=== PATIENT | female | born 1970 | race Caucasian/White ===

== ENCOUNTER 2016-04-24 09:57 | Inpatient (IN) ==
--- NOTE | 2016-04-23 20:43 | Discharge Summary ---
<Marielos Romeo - Last Filed: 04/24/16 09:43> Date of Encounter: 04/24/16 - Discharge Diagnosis (1) Arthritis of knee, right Priority: Primary Status: Acute (2) ARNAV on CPAP Priority: Secondary Status: Chronic (3) Edema Priority: Secondary Status: Chronic Qualifiers: Edema type: unspecified Qualified Code(s): R60.9 - Edema, unspecified (4) Thyroid disorder Priority: Secondary Status: Chronic - Discharge Medications Home Medications: Aspirin Enteric Coated [Aspirin EC] 325 mg PO DAILY #21 tablet.dr 04/23/16 [Rx] OxyCODONE Immed Rel [Roxicodone 5 MG] 5 - 10 mg PO Q6HR PRN #40 tablet 04/23/16 [Rx] Albuterol Neb [Proventil Neb] 2.5 mg IH Q4HR 04/24/16 [History] BuPROPion XL (24 HR) [Wellbutrin Xl] 150 mg PO DAILY 04/24/16 [History] Bupropion HCl [Wellbutrin Xl] 300 mg PO DAILY 04/24/16 [History] Buspirone HCl [Buspar] 30 mg PO BID 04/24/16 [History] Docusate [Colace] 100 mg PO DAILY 04/24/16 [History] Fluticasone Propionate Nasal [Flonase] 1 spr NS DAILY PRN 04/24/16 [History] Furosemide [Lasix] 40 mg PO DAILY 04/24/16 [History] Gabapentin 300 mg PO HS 04/24/16 [History] Hydroxyzine HCl 25 mg PO BID 04/24/16 [History] Hydroxyzine HCl 50 mg PO HS 04/24/16 [History] Ipratropium [ATROVENT Inhaler] 2 gm IH Q6HR 04/24/16 [History] Ipratropium/Albuterol Sulfate [Combivent Respimat Inhal [place]] 1 puff IH QID [History] Levothyroxine [Synthroid] 75 mcg PO DAILY 04/24/16 [History] Pantoprazole Sodium [Protonix] 20 mg PO DAILY 04/24/16 [History] Paroxetine HCl [Paxil] 20 mg PO DAILY 04/24/16 [History] Quetiapine Fumarate [Seroquel Xr] 800 mg PO HS 04/24/16 [History] Ranitidine HCl [Zantac] 150 mg PO DAILY 04/24/16 [History] Tiotropium [Spiriva] 18 mcg IH 0700 04/24/16 [History] Trazodone HCl 150 mg PO HS 04/24/16 [History] Allergies/Adverse Reactions: Allergies No Known Allergies Allergy (Verified 04/24/16 11:15) Primary care physician: Mylene Norman CNP - Patient Status Disposition: Home, Self-Care Condition: Good - Discharge Instructions Follow Up With: Jefferson Green MD [Partnered Physician] - 05/23/16 7:50 am Marielos Romeo PAC [Physician Visual Lead] - 05/03/16 8:45 am Mylene Norman CNP [Primary Care Provider] - - Hospital Course Hospital course: Ms. Kahn is a 45 year old female - Time Spent with Patient Total time spent providing and/or coordinating discharge services: <Jefferson Green - Last Filed: 04/27/16 08:38> Time of Encounter: 08:37 - Discharge Diagnosis (1) Morbid obesity with BMI of 45.0-49.9, adult Priority: Secondary Status: Chronic (2) Arthritis of knee, right Priority: Primary Status: Acute (3) Edema Priority: Secondary Status: Chronic Qualifiers: Edema type: unspecified Qualified Code(s): R60.9 - Edema, unspecified (4) ARNAV on CPAP Priority: Secondary Status: Chronic (5) Thyroid disorder Priority: Secondary Status: Chronic (6) Acute blood loss anemia Priority: Primary Status: Acute Primary care physician: Mylene Norman CNP - Patient Status Functional capacity at discharge: uses cane/walker Overall status at discharge: patient is progressing back to baseline - Hospital Course Hospital course: Ms. Kahn is a 45 year old female The patient had an uneventful postoperative course. They received antibiotics and physical therapy and were discharged in stable condition. There will follow -up in the office in 2 weeks. Patient with acute blood loss anemia and received 2 units prior to discharge discharge aspirin DVT prophylaxis - Time Spent with Patient Total time spent providing and/or coordinating discharge services:
[2016-04-24] MEDS ORDERED: CeFAZolin Pre 2,000 MG/100 ML 2,000 MG/100 ML BAG IVPB ONE (10:28)
[2016-04-24] MEDS ORDERED: Albuterol 2.5 MG/3 ML NEBULIZER IH ONE (10:28)
[2016-04-24] MEDS: Ringers Solution, Lactated 1,000 ML IVC SCH ×3 (10:39→20:46)
--- NOTE | 2016-04-24 10:46 | History & Physical Report ---
Date of Encounter: 04/24/16 Time of Encounter: 10:46 24 Hour HP Update - Instructions Instructions: If the History and Physical is less than 30 days old and was completed prior to A.M. admission and or procedure and has NOT been updated on calendar day of procedure please complete this update prior to performing procedure. - Update Patient reports changes in Medical Condition: No Changes in assessment/condition: No Changes in Medication: No Preop tests/diagnostics Reviewed: Yes Surgery Remains Indicated: Yes Consent for Planned Operative Procedure(s) Verified: Yes - Pre-Operative Checklist Preoperative Checklist Indicated: No Prophylactic Antibiotic Ordered: Yes Is VTE Prophylaxis Indicated?: Yes
[2016-04-24] MEDS ORDERED: Vancomycin 1,750 MG in D5% in Water 500 ML IVPB ONE (10:50)
[2016-04-24] MEDS ORDERED: CeFAZolin Pre 3,000 MG/100 ML 3,000 MG/100 ML BAG IVPB ONE (10:51)
[2016-04-24] MEDS ORDERED: Famotidine 20 MG/2 ML VIAL IVP ONE (10:53)
--- NOTE | 2016-04-24 11:05 | Anesthesia Evaluation PreOp ---
Date of Encounter: 04/24/16 Time of Encounter: 11:00 - Past History Planned Operation: RT TKA Cardiac History: Denies any Significant Hx, Other (Anemia) Pulmonary History: Asthma, ARNAV Dx (CPAP) CUSTOMER OPERATIONS SPECIALIST History: Denies Any Significant HX Other Medical History: GERD, Other (MO) Anesthesia History: No Prior Anesthetic Complications : No (Hysterectomy) Alcohol Use: none Drug use: none Medications and Allergies Amoxicillin 875 mg PO BID #20 tablet 03/19/15 [Rx] Bupropion HCl [Wellbutrin Xl] 300 mg PO 03/19/15 [History] Seroquel 03/19/15 [History] Aspirin Enteric Coated [Aspirin EC] 325 mg PO DAILY #21 tablet. 04/23/16 [Rx] OxyCODONE Immed Rel [Roxicodone 5 MG] 5 - 10 mg PO Q6HR PRN #40 tablet 04/23/16 [Rx] Allergies No Known Allergies Allergy (Verified 03/19/15 13:33) - Meds/Allergy Pre-op Review Medications Reviewed: Yes Allergies Reviewed: Yes Beta Blockers on Current Med List: No Anesthesia Results - Labs Laboratory Tests 04/12/16 04/12/16 14:30 14:30 Hgb 13.2 Hct 40.4 Plt Count 267 Sodium 139 Potassium 3.6 BUN 11 Creatinine 1.00 - Imaging Additional studies: Normal heart cath 2014 Anesthesia Exam O2 Sat Height 1.57 m Height 1.57 m Height 1.57 m Weight 115.666 kg Weight 115.666 kg Weight 115.666 kg O2 Sat by Pulse Oximetry 94 O2 Sat by Pulse Oximetry 94 Vital Signs Temp Pulse Resp BP Pulse Ox 97.9 F 68 18 119/69 94 L 04/24/16 10:13 04/24/16 10:13 04/24/16 10:13 04/24/16 10:13 04/24/16 10:13 Height: 5'2 Weight: 258 lbs NPO (# of Hours): MN - HEENT Pupil (Motor): Pupils equal, EOMI Mallampati: III Teeth: Normal Oral Opening: Less than or equal to 3 - CUSTOMER OPERATIONS SPECIALIST LOC: Oriented CUSTOMER OPERATIONS SPECIALIST Motor: Normal RUE, Normal LUE, Normal RLE, Normal LLE, Normal Face CUSTOMER OPERATIONS SPECIALIST Sensory: Normal: RUE, LUE, RLE, LLE, Face - Cardiac Rhythm: Regular Murmur: None JVD: No Carotid Bruit: No - Pulmonary Breath Sounds: bilateral Clear Respiratory Effort: Symmetrical Anesthesia Assess/Plan ASA Score: 3 (MO ARNAV) Modified Pedro Scale for Level of Consciousness: Cooperative, oriented, and tranquil Anesthetic Plan: General, Regional Monitoring Plan: Standard Monitors Recovery Plan: PACU (Discussed GA and RA, agrees to proceed)
[2016-04-24] MEDS ORDERED: *HR* Midazolam HCl 2 MG/2 ML VIAL ONE (11:14)
[2016-04-24] MEDS ORDERED: *HR* FentaNYL (PF) 100 MCG/2 ML VIAL ONE (11:14)
[2016-04-24] MEDS ORDERED: *HR* Propofol 200 MG/20 ML VIAL IVP ONE (11:14)
[2016-04-24] MEDS ORDERED: Lidocaine -MPF 2% 2 ML VIAL ONE (11:16)
[2016-04-24] MEDS ORDERED: *HR* Labetalol 100 MG/20 ML MDV IVP PRN (11:23)
[2016-04-24] MEDS ORDERED: Tetracaine/PF 20 MG/2 ML AMPUL SPINA ONE (11:57)
--- NOTE | 2016-04-24 12:13 | Anesthesia Procedures ---
Date of Encounter: 04/24/16 Time of Encounter: 11:05 Procedures: Anesthesia - Nerve Block Procedure Date: 04/24/16 Time: 12:00 Pre-op Diagnosis: Rt Knee OA Surgical Procedure: Rt TKA Checklist: Correct Patient Identifier Correct side: Right Blood Thinner: No Monitor Applied: EKG, BP, Pulse Oximetry Supplemental Oxygen via Nasal Cannula (L/min): 2 Sedation: Versed (mg): 2 Sedation: Fentanyl (mcg): 50 Indication: Post Op Analgesia Pre-op Neuro Deficits: No Block Type: Femoral Catheter placed: No Depth at skin (cm): 3 Sterile Technique: Yes Ultrasound used: Yes Anatomy identified: Yes Visual spread of Local: Yes Neuro Stimulation: Yes Nerve Stimulator Range: 0.2 - 0.4 mA Blood on Needle Aspiration: No Smooth Injection of Local: Yes Pain with Injection of Local: No Prep: Chlorhexadine Needle: 22 x 50 mm Stimuplex Local: Tetracaine, Other (Bupivacaine) Volume (cc): 30 Number of Attempts: 1 Complications: None/effective block Vitals: Vital Signs/O2 Sat/Glucose, Most Current Temp Pulse Resp BP Pulse Ox 04/24/16 12:08 74 16 120/89 96 04/24/16 11:53 73 16 121/83 99 04/24/16 10:40 18 94 L 04/24/16 10:13 97.9 F 68 18 119/69 94 L
[2016-04-24] MEDS ORDERED: *HR* Magnesium Sulfate 1 GM/2 ML VIAL ONE (12:32)
[2016-04-24] MEDS ORDERED: *HR* HYDROmorphone 2 MG/ML SYRINGE ONE (12:40)
--- NOTE | 2016-04-24 13:02 | Orthopedic Operative Note ---
Date of procedure: 04/24/16 Pre-op diagnosis: Right knee arthritis ACL tear Post-op diagnosis: same Procedure: Procedure: Right Total knee replacement Estimated blood loss: 200 cc Hardware: Arthrex Femur: 5 Tibia: 5 PS insert: 13 Patella: 34 Exam Under anesthesia: Positive anterior instability. Full Flexion. Full Extension Procedural Notes: Grade 4 arthritic changes medial compartment patellofemoral joint ACL tear. Operative procedure: The patient was brought to the operating room and placed on the operating room table. After general anesthesia was administered the operative knee was examined. Findings were noted in the exam under anesthesia. The operative extremity was prepped and draped in sterile surgical fashion. The patient received IV antibiotics prior to skin incision. A standard midline incision was made centered over the patella. The incision was made through the skin and subcutaneous tissue. A medial parapatellar tendon approach was performed. Care was taken to preserve tissue along the medial aspect of the patella. And to protect the patella tendon. The deep MCL was released off the medial tibia. The infra patella fat pad was excised. Knee was brought into flexion. Patient noted to have Grade 4 arthritic changes medial compartment patellofemoral joint. The entry hole was made for the intramedullary femoral guide. The guide was seated in 6 degrees of valgus. Anterior cut was made followed by the distal cut. The ACL was torn the PCL the medial and the lateral menisci were excised. The tibia was subluxed forward. The entry hole was made for the intramedullary tibial guide. Guide was seated to resect 2 mm off the more abnormal side. The knee was brought into flexion the distal femur was sized to a 5. The femoral guide was seated, the anterior cut was made followed by the posterior condylar cut, followed by the chamfer cuts. The finishing guide was seated the box cut was made and the lug holes were drilled. The tibia was sized to a 5, the tibial tray was seated and prepared with the large drill followed by the fin cutter. Trial reduction revealed full extension no varus valgus instability with the appropriate 13 PS Aminah. The patella was everted and cut was made at the level of the insertion of the quadriceps and patella tendon. The patella was sized to a 34 the guide was seated and the lug holes are drilled. Trial reduction revealed excellent patella tracking. All trial components were removed all bony surfaces were irrigated. The tibia was cemented first followed by the femur. The 13 PS Aminah was seated and the knee was brought into full extension. The patella was cemented and held in place with the patellar holding clamp. After the cement had hardened, the knee sat for 2 minutes with a Betadine saline solution. The knee was then irrigated out with 2 L of pulse irrigation. The extensor mechanism was closed with #2 FiberWire suture and #2 PDS suture. The subcutaneous tissue was then irrigated and closed deep with #1 PDS suture superficially with 0 PDS suture and skin was closed with skin frank and Dermabond. The patient was then placed in a sterile dressing and a postoperative brace extubated and transferred to recovery room in stable condition. Anesthesia: GM Surgeon: Jefferson Green Condition: stable Disposition: PACU
[2016-04-24] MEDS: *HR* Promethazine 25 MG/ML VIAL IVP PRN ×2 (13:42→13:50)
[2016-04-24] MEDS: *HR* HYDROmorphone (PF) 1 MG/ML SYRINGE IVP PRN ×2 (13:55→14:00)
[2016-04-24] MEDS ORDERED: *HR* Meperidine 25 MG/ML SYRINGE ONE ×2 (14:04→14:14)
[2016-04-24] MEDS ORDERED: *HR* Morphine 10 MG/ML VIAL ONE (14:05)
[2016-04-24 14:43] LABS: Hematocrit 34.6 % (35.3-44.9); Hemoglobin 11.3 g/dL (11.5-15.4)
--- NOTE | 2016-04-24 15:46 | Anesthesia Evaluation Post Op ---
Date of Encounter: 04/24/16 Time of Encounter: 15:35 - Vital Signs Vital Signs: Vital Signs/O2 Sat/Glucose, Most Current Temp Pulse Resp BP Pulse Ox 04/24/16 15:35 97.3 F L 89 14 121/75 93 L 04/24/16 15:33 13 92 L 04/24/16 15:25 88 14 134/84 93 L 04/24/16 15:15 90 12 134/79 91 L 04/24/16 15:05 97.4 F L 87 12 142/92 91 L 04/24/16 14:55 82 16 135/92 92 L 04/24/16 14:45 90 16 123/88 90 L 04/24/16 14:35 97.4 F L 90 16 131/78 93 L 04/24/16 14:25 90 16 131/74 85 L 04/24/16 14:15 84 16 126/86 89 L 04/24/16 14:05 97.3 F L 86 16 124/76 97 04/24/16 13:55 85 16 121/79 98 04/24/16 13:45 87 16 133/74 100 04/24/16 13:35 97.0 F L 88 16 137/93 100 04/24/16 12:08 74 16 120/89 96 04/24/16 11:53 73 16 121/83 99 - Lungs Lungs: Clear Ascult./Percussion - Airway Airway: Non-obstructed - Cardiovascular Regular Rate - Mental Status Mental Status: Alert & Oriented, Answers Appropriately - Pain Pain Scale: 2 - Nausea Vomiting Nausea Vomiting: Not Present - Hydration Hydration: Ice chips - Discharge PostOp Status: Transfer Patient to floor
[2016-04-24] MEDS ORDERED: Sennosides 8.6 MG TABLET PO PRN (16:13)
[2016-04-24] MEDS ORDERED: Naloxone 0.4 MG/ML INJ IVP PRN (16:13)
[2016-04-24] MEDS ORDERED: Ondansetron 4 MG/2 ML VIAL IVP PRN (16:13)
[2016-04-24] MEDS ORDERED: Fluticasone Propionate Nasal 50 MCG/SPRAY BOTTLE NS PRN (16:13)
[2016-04-24] MEDS ORDERED: *HR* OxyCODONE Immed Rel 5 MG TABLET PO PRN (16:13)
[2016-04-24] MEDS ORDERED: Albuterol Neb 1.25 MG/3 ML VIAL IH ONE (16:13)
[2016-04-24] MEDS ORDERED: Acetaminophen 325 MG TABLET PO PRN (16:13)
[2016-04-24] MEDS ORDERED: MOM Conc 10 ML UD.LIQ PO PRN (16:13)
[2016-04-24] MEDS ORDERED: Temazepam 15 MG CAPSULE PO PRN (16:13)
[2016-04-24] MEDS ORDERED: Ipratropium 1 PUFF INHALER IH SCH (16:13)
[2016-04-24] MEDS: Ketorolac 30 MG/ML VIAL IVP PRN (16:33)
[2016-04-24] MEDS: Ipratropium 1 PUFF INHALER IH SCH ×2 (17:13→21:24)
[2016-04-24] MEDS: hydrOXYzine pamoate 25 MG CAPSULE PO SCH (17:39)
[2016-04-24] MEDS: *HR* Enoxaparin 30 MG/0.3 ML SYRINGE SQ SCH (17:48)
[2016-04-24] MEDS ORDERED: *HR* Enoxaparin 30 MG/0.3 ML SYRINGE SQ SCH (18:00)
[2016-04-24] MEDS: Gabapentin 300 MG CAPSULE PO SCH (20:45)
[2016-04-24] MEDS: traZODone 50 MG TABLET PO SCH (20:45)
[2016-04-24] MEDS: ceFAZolin 3,000 MG in D5% in Water 100 ML IVPB SCH (20:46)
[2016-04-24] MEDS ORDERED: QUETIAPINE FUMARATE 800 MG PO SCH (21:00)
[2016-04-24] MEDS ORDERED: hydrOXYzine pamoate 25 MG CAPSULE PO SCH (21:00)
[2016-04-24] MEDS ORDERED: NON-FORMULARY MEDICATION 1 EACH EACH (Hydroxyzine Hcl [Hydroxyzine Hcl] 50 MG) PO SCH (21:00)
[2016-04-24] MEDS: Albuterol 2.5 MG/3 ML NEBULIZER IH SCH (21:23)
[2016-04-25] MEDS: Albuterol 2.5 MG/3 ML NEBULIZER IH SCH ×7 (00:52→23:41)
[2016-04-25] MEDS: *HR* OxyCODONE Immed Rel 5 MG TABLET PO PRN ×3 (01:24→16:52)
[2016-04-25] MEDS: Ketorolac 30 MG/ML VIAL IVP PRN ×4 (02:17→19:05)
[2016-04-25] MEDS: *HR* HYDROmorphone (PF) 1 MG/ML SYRINGE IVP PRN (03:45)
[2016-04-25] MEDS: ceFAZolin 3,000 MG in D5% in Water 100 ML IVPB SCH (04:53)
[2016-04-25] MEDS: Ipratropium 1 PUFF INHALER IH SCH ×4 (05:06→20:16)
[2016-04-25 06:15] LABS: Hematocrit 31.4 % (35.3-44.9); Hemoglobin 10.1 g/dL (11.5-15.4)
[2016-04-25 06:39] LABS: Calcium 8.2 mg/dL (8.6-10.8)
[2016-04-25 06:41] LABS: Potassium 4.5 mEq/L (3.5-4.5)
--- NOTE | 2016-04-25 06:42 | Orthopedics Progress Note ---
Date of Encounter: 04/25/16 Time of Encounter: 06:41 - Assessment and Plan (1) Morbid obesity with BMI of 45.0-49.9, adult Current Visit: Yes Status: Chronic (2) Arthritis of knee, right Current Visit: Yes Status: Acute (3) Edema Current Visit: Yes Status: Chronic Qualifiers: Edema type: unspecified Qualified Code(s): R60.9 - Edema, unspecified (4) ARNAV on CPAP Current Visit: Yes Status: Chronic (5) Thyroid disorder Current Visit: Yes Status: Chronic Subjective Interval history: Patient was seen this morning doing well without complaints. Afebrile vital signs stable. Operative extremity: Neurovascularly intact Dressing clean dry and intact Calves nontender Assessment and plan: Continue with postoperative care Hematocrit 31 Objective Vital signs: Vital Signs Temp Pulse Resp BP Pulse Ox 04/25/16 05:06 16 94 L 04/25/16 03:58 97.8 F 80 19 121/83 95 04/25/16 00:00 97.5 F L 79 18 129/80 97 04/24/16 21:24 18 97 04/24/16 20:00 97.8 F 78 18 126/82 98 04/24/16 18:50 91 14 95 04/24/16 17:51 98.0 F 94 14 108/77 96 04/24/16 17:15 16 91 L 04/24/16 16:50 98.0 F 91 14 100/67 93 L 04/24/16 16:48 14 91 L 04/24/16 16:20 97.7 F 89 12 130/80 93 L 04/24/16 16:13 95 04/24/16 15:50 97.5 F L 95 12 131/74 92 L 04/24/16 15:35 97.3 F L 89 14 121/75 93 L 04/24/16 15:33 13 92 L 04/24/16 15:25 88 14 134/84 93 L 04/24/16 15:15 90 12 134/79 91 L 04/24/16 15:05 97.4 F L 87 12 142/92 91 L 04/24/16 14:55 82 16 135/92 92 L 04/24/16 14:45 90 16 123/88 90 L 04/24/16 14:35 97.4 F L 90 16 131/78 93 L 04/24/16 14:25 90 16 131/74 85 L 04/24/16 14:15 84 16 126/86 89 L 04/24/16 14:05 97.3 F L 86 16 124/76 97 04/24/16 13:55 85 16 121/79 98 04/24/16 13:45 87 16 133/74 100 04/24/16 13:35 97.0 F L 88 16 137/93 100 04/24/16 12:08 74 16 120/89 96 04/24/16 11:53 73 16 121/83 99 04/24/16 10:40 18 94 L 04/24/16 10:13 97.9 F 68 18 119/69 94 L Intake and Output 04/24/16 04/24/16 04/25/16 15:59 23:59 07:59 Intake Total 1650 / 1650 200 / 200 Output Total 200 / 200 Balance 1450 / 1450 200 / 200 Intake: IV Fluids 1650 / 1650 100 / 100 Lactated Ringers 1,000 ML 1650 / 1650 @ 25 mls/hr IVC .Q24H MARIANGEL Rx#:[id number] Ancef 3,000 MG In 100 / 100 Dextrose 5% 100 ML @ 200 mls/hr IVPB Q8H MARIANGEL Rx#: [id number] Oral 100 / 100 Output: Estimated Blood Loss 200 / 200 Other: Weight 115.666 kg - Labs CBC & BMP: 04/25/16 05:43 04/25/16 05:43 Labs: Abnormal lab results Hgb 10.1 g/dL (11.5-15.4) L 04/25/16 05:43 Hct 31.4 % (35.3-44.9) L 04/25/16 05:43 Sodium 131 mEq/L (136-145) L 04/25/16 05:43 Carbon Dioxide 16 mEq/L (19-29) L 04/25/16 05:43 Creatinine 1.19 mg/dL (0.57-1.11) H 04/25/16 05:43 Est GFR ( Amer) 59 (> 60) L 04/25/16 05:43 Est GFR (Non-Af Amer) 49 (> 60) L 04/25/16 05:43 Glucose 125 mg/dL (70-99) H 04/25/16 05:43 Calculated Osmolality 274 (280-300) L 04/25/16 05:43 Calcium 8.2 mg/dL (8.6-10.8) L 04/25/16 05:43 - VTE Documentation of Mechanical Device: Venous foot pump, device Consult Discharge Plan - Plan Referrals: Mylene Norman, CARBURETOR MECHANIC [Primary Care Provider] -
[2016-04-25] MEDS: *HR* Enoxaparin 30 MG/0.3 ML SYRINGE SQ SCH ×2 (07:28→17:32)
[2016-04-25] MEDS: Tiotropium 18 MCG inhalation IH SCH (08:07)
[2016-04-25] MEDS: BuPROPion XL (24 HR) 150 MG TABLET PO SCH ×2 (09:46)
[2016-04-25] MEDS: Furosemide 40 MG TABLET PO SCH (09:47)
[2016-04-25] MEDS: Famotidine 20 MG TABLET PO SCH (09:47)
[2016-04-25] MEDS: Ringers Solution, Lactated 1,000 ML IVC SCH (12:22)
[2016-04-25] MEDS: hydrOXYzine pamoate 25 MG CAPSULE PO SCH (17:32)
[2016-04-25] MEDS: Gabapentin 300 MG CAPSULE PO SCH (22:01)
[2016-04-25] MEDS: traZODone 50 MG TABLET PO SCH (22:01)
[2016-04-26] MEDS: *HR* OxyCODONE Immed Rel 5 MG TABLET PO PRN ×3 (03:34→18:26)
[2016-04-26] MEDS: Albuterol 2.5 MG/3 ML NEBULIZER IH SCH ×6 (04:30→23:39)
[2016-04-26] MEDS: Ipratropium 1 PUFF INHALER IH SCH ×4 (04:31→22:00)
[2016-04-26] MEDS: *HR* HYDROmorphone (PF) 1 MG/ML SYRINGE IVP PRN ×2 (05:17→11:54)
[2016-04-26] MEDS: *HR* Enoxaparin 30 MG/0.3 ML SYRINGE SQ SCH ×2 (05:18→18:26)
[2016-04-26 06:44] LABS: Hematocrit 24.2 % (35.3-44.9)
[2016-04-26 06:55] LABS: BUN/Creatinine Ratio 14 (6-26); Blood Urea Nitrogen 13 mg/dL (7-20); Calcium 8.2 mg/dL (8.6-10.8); Carbon Dioxide 27 mEq/L (19-29); Chloride 104 mEq/L (98-109); Glucose 105 mg/dL (70-99); Osmolality,Calculated 284 (280-300); Potassium 4.4 mEq/L (3.5-4.5); Sodium 137 mEq/L (136-145); eGFR For African Americans > 60 (> 60); eGFR For Non-African Americans > 60 (> 60)
--- NOTE | 2016-04-26 07:48 | Orthopedics Progress Note ---
Date of Encounter: 04/26/16 Time of Encounter: 07:47 - Assessment and Plan (1) Morbid obesity with BMI of 45.0-49.9, adult Current Visit: Yes Status: Chronic (2) Arthritis of knee, right Current Visit: Yes Status: Acute (3) Edema Current Visit: Yes Status: Chronic Qualifiers: Edema type: unspecified Qualified Code(s): R60.9 - Edema, unspecified (4) ARNAV on CPAP Current Visit: Yes Status: Chronic (5) Thyroid disorder Current Visit: Yes Status: Chronic Subjective Interval history: Patient was seen this morning doing well without complaints. Afebrile vital signs stable. Operative extremity: Neurovascularly intact Dressing clean dry and intact Calves nontender Assessment and plan: Continue with postoperative care Hematocrit 24 repeat H&H Objective Vital signs: Vital Signs Temp Pulse Resp BP Pulse Ox 04/26/16 06:55 97.9 F 95 16 112/68 92 L 04/26/16 05:15 98.6 F 78 16 114/72 98 04/26/16 01:48 99.0 F 108 15 101/70 92 L 04/25/16 21:53 98.0 F 77 16 111/68 94 L 04/25/16 20:01 18 94 L 04/25/16 17:16 16 96 04/25/16 15:57 98.2 F 88 16 105/68 97 04/25/16 12:30 97.9 F 91 16 132/87 93 L 04/25/16 12:06 17 94 L 04/25/16 11:54 97.7 F 97 16 122/74 94 L 04/25/16 11:21 97.8 F 91 18 123/74 95 04/25/16 08:07 18 93 L Intake and Output 04/25/16 04/25/16 04/26/16 15:59 23:59 07:59 Intake Total 1240 / 1240 Output Total 350 / 350 600 / 600 400 / 400 Balance 890 / 890 -600 / -600 -400 / -400 Intake: IV Fluids 1000 / 1000 Lactated Ringers 1,000 ML 1000 / 1000 @ 75 mls/hr IVC .[id number] MARIANGEL Rx#:[id number] Oral 240 / 240 Output: Urine 350 / 350 600 / 600 400 / 400 Other: Meal Lunch Percent of Meal Consumed 50% # Voids 1 - Labs CBC & BMP: 01/18/17 06:24 04/26/16 06:24 Labs: Abnormal lab results Hgb 8.0 g/dL (11.5-15.4) L D 04/26/16 06:24 Hct 24.2 % (35.3-44.9) L 04/26/16 06:24 Glucose 105 mg/dL (70-99) H 04/26/16 06:24 Calcium 8.2 mg/dL (8.6-10.8) L 04/26/16 06:24 - VTE Documentation of Mechanical Device: Venous foot pump, device Consult Discharge Plan - Plan Referrals: Jefferson Green MD [Partnered Physician] - 05/23/16 7:50 am Marielos Romeo PAC [Physician Laser Machine Operator] - 05/03/16 8:45 am Mylene Norman CNP [Primary Care Provider] -
[2016-04-26] MEDS: Tiotropium 18 MCG inhalation IH SCH (08:01)
[2016-04-26 08:53] LABS: Hematocrit 26.9 % (35.3-44.9)
[2016-04-26] MEDS: BuPROPion XL (24 HR) 150 MG TABLET PO SCH ×2 (09:04→09:05)
[2016-04-26] MEDS: Famotidine 20 MG TABLET PO SCH (09:05)
[2016-04-26] MEDS: Furosemide 40 MG TABLET PO SCH (09:05)
[2016-04-26] MEDS: hydrOXYzine pamoate 25 MG CAPSULE PO SCH (18:26)
[2016-04-26] MEDS: Ketorolac 30 MG/ML VIAL IVP PRN (22:09)
[2016-04-26] MEDS: traZODone 50 MG TABLET PO SCH (22:09)
[2016-04-26] MEDS: Gabapentin 300 MG CAPSULE PO SCH (22:10)
[2016-04-27] MEDS: *HR* OxyCODONE Immed Rel 5 MG TABLET PO PRN ×3 (00:56→19:01)
[2016-04-27] MEDS: Albuterol 2.5 MG/3 ML NEBULIZER IH SCH ×6 (03:11→22:29)
[2016-04-27] MEDS: Ipratropium 1 PUFF INHALER IH SCH ×4 (03:13→22:26)
[2016-04-27] MEDS: *HR* Enoxaparin 30 MG/0.3 ML SYRINGE SQ SCH ×2 (06:41→17:49)
[2016-04-27] MEDS: Tiotropium 18 MCG inhalation IH SCH (08:01)
[2016-04-27 08:05] LABS: Hematocrit 22.5 % (35.3-44.9); Hemoglobin 7.5 g/dL (11.5-15.4)
[2016-04-27 08:18] LABS: BUN/Creatinine Ratio 10 (6-26); Blood Urea Nitrogen 8 mg/dL (7-20); Calcium 8.2 mg/dL (8.6-10.8); Carbon Dioxide 26 mEq/L (19-29); Chloride 100 mEq/L (98-109); Glucose 97 mg/dL (70-99); Osmolality,Calculated 276 (280-300); Potassium 3.5 mEq/L (3.5-4.5); Sodium 134 mEq/L (136-145); eGFR For African Americans > 60 (> 60); eGFR For Non-African Americans > 60 (> 60)
--- NOTE | 2016-04-27 08:40 | Orthopedics Progress Note ---
Date of Encounter: 04/27/16 Time of Encounter: 08:40 - Assessment and Plan (1) Morbid obesity with BMI of 45.0-49.9, adult Current Visit: Yes Status: Chronic (2) Arthritis of knee, right Current Visit: Yes Status: Acute (3) Edema Current Visit: Yes Status: Chronic Qualifiers: Edema type: unspecified Qualified Code(s): R60.9 - Edema, unspecified (4) ARNAV on CPAP Current Visit: Yes Status: Chronic (5) Thyroid disorder Current Visit: Yes Status: Chronic (6) Acute blood loss anemia Current Visit: Yes Status: Acute Subjective Interval history: Patient was seen this morning doing well without complaints. Afebrile vital signs stable. Operative extremity: Neurovascularly intact Dressing clean dry and intact Calves nontender Assessment and plan: Continue with postoperative care Hematocrit 22 this morning transfuse 2 units Blood cells plan for discharge this afternoon Objective Vital signs: Vital Signs Temp Pulse Resp BP Pulse Ox 04/27/16 08:03 20 95 04/27/16 07:39 98.0 F 97 20 94/68 97 04/27/16 03:14 18 91 L 04/27/16 00:06 87 20 98 04/26/16 23:39 18 89 L 04/26/16 20:24 18 93 L 04/26/16 19:36 98.8 F 94 20 121/80 97 04/26/16 15:56 18 136/86 88 L 04/26/16 15:53 98.3 F 95 18 136/86 100 04/26/16 11:36 18 95 04/26/16 10:43 98.6 F 87 17 140/87 94 L Intake and Output 04/26/16 04/27/16 04/27/16 23:59 07:59 15:59 Intake Total 500 / 500 350 / 350 Output Total 250 / 250 600 / 600 Balance 250 / 250 -250 / -250 Intake: Oral 500 / 500 350 / 350 Output: Urine 250 / 250 600 / 600 - Labs CBC & BMP: 04/27/16 07:52 04/27/16 07:52 Labs: Abnormal lab results Hgb 7.5 g/dL (11.5-15.4) L D 04/27/16 07:52 Hct 22.5 % (35.3-44.9) L 04/27/16 07:52 Sodium 134 mEq/L (136-145) L 04/27/16 07:52 Calculated Osmolality 276 (280-300) L 04/27/16 07:52 Calcium 8.2 mg/dL (8.6-10.8) L 04/27/16 07:52 MRSA Surveillance Scrn Positive (Negative) A 04/26/16 12:00 - VTE Documentation of Mechanical Device: Venous foot pump, device Consult Discharge Plan - Plan Referrals: Jefferson Green MD [Partnered Physician] - 05/23/16 7:50 am Marielos Romeo, PAC [Physician Quality Control Industrial Engineer] - 05/03/16 8:45 am Mylene Norman, SWING GRINDER [Primary Care Provider] -
[2016-04-27] MEDS: Famotidine 20 MG TABLET PO SCH (10:07)
[2016-04-27] MEDS: BuPROPion XL (24 HR) 150 MG TABLET PO SCH ×2 (10:08)
[2016-04-27] MEDS: Furosemide 40 MG TABLET PO SCH (10:08)
[2016-04-27] MEDS ORDERED: 0.9 % Sodium Chloride 250 ML ONE ×2 (17:33→21:37)
[2016-04-27] MEDS: hydrOXYzine pamoate 25 MG CAPSULE PO SCH (17:49)
[2016-04-27] MEDS: Gabapentin 300 MG CAPSULE PO SCH (22:06)
[2016-04-27] MEDS: traZODone 50 MG TABLET PO SCH (22:06)
[2016-04-28] MEDS: *HR* OxyCODONE Immed Rel 5 MG TABLET PO PRN ×2 (04:37→08:32)
[2016-04-28] MEDS: Albuterol 2.5 MG/3 ML NEBULIZER IH SCH ×2 (04:39→08:11)
[2016-04-28] MEDS: Ipratropium 1 PUFF INHALER IH SCH (04:39)
[2016-04-28 05:20] LABS: Hematocrit 27.2 % (35.3-44.9)
[2016-04-28 05:22] LABS: Hemoglobin 9.3 g/dL (11.5-15.4)
[2016-04-28] MEDS: *HR* Enoxaparin 30 MG/0.3 ML SYRINGE SQ SCH (06:14)
--- NOTE | 2016-04-28 06:34 | Orthopedics Progress Note ---
Date of Encounter: 04/28/16 Time of Encounter: 06:34 - Assessment and Plan (1) Morbid obesity with BMI of 45.0-49.9, adult Current Visit: Yes Status: Chronic (2) Arthritis of knee, right Current Visit: Yes Status: Acute (3) Edema Current Visit: Yes Status: Chronic Qualifiers: Edema type: unspecified Qualified Code(s): R60.9 - Edema, unspecified (4) ARNAV on CPAP Current Visit: Yes Status: Chronic (5) Thyroid disorder Current Visit: Yes Status: Chronic (6) Acute blood loss anemia Current Visit: Yes Status: Acute Subjective Interval history: Patient was seen this morning doing well without complaints. Afebrile vital signs stable. Operative extremity: Neurovascularly intact Dressing clean dry and intact Calves nontender Assessment and plan: Continue with postoperative care Hemoglobin 9.3 discharged today Objective Vital signs: Vital Signs Temp Pulse Resp BP Pulse Ox 04/28/16 04:41 97 04/28/16 04:00 97.9 F 90 17 114/70 97 04/28/16 00:56 98.5 F 91 20 107/67 94 L 04/27/16 22:25 11 97 04/27/16 22:19 98.1 F 90 16 143/78 93 L 04/27/16 22:04 98.7 F 93 16 100/58 92 L 04/27/16 21:10 99.1 F 94 16 108/65 93 L 04/27/16 20:02 17 95 04/27/16 18:10 98.4 F 103 17 93 L 04/27/16 17:55 98.0 F 107 18 122/69 94 L 04/27/16 15:50 16 90 L 04/27/16 10:49 98.5 F 97 16 114/79 90 L 04/27/16 08:03 20 95 04/27/16 07:39 98.0 F 97 20 94/68 97 Intake and Output 04/27/16 04/27/16 04/28/16 15:59 23:59 07:59 Intake Total 120 / 120 950 / 950 950 / 950 Output Total 975 / 975 1100 / 1100 Balance 120 / 120 -25 / -25 -150 / -150 Intake: Oral 120 / 120 600 / 600 650 / 650 Blood Product 350 / 350 300 / 300 Rbcs Leuko Poor As-1 350 / 350 Unit [id number] Rbcs Leuko Poor As-1 0 / 0 300 / 300 Unit [id number] Output: Urine 975 / 975 1100 / 1100 Other: Meal Breakfast Percent of Meal Consumed 40% # Voids 1 - Labs CBC & BMP: 04/28/16 05:12 04/27/16 07:52 Labs: Abnormal lab results Hgb 9.3 g/dL (11.5-15.4) L D 04/28/16 05:12 Hct 27.2 % (35.3-44.9) L 04/28/16 05:12 Sodium 134 mEq/L (136-145) L 04/27/16 07:52 Calculated Osmolality 276 (280-300) L 04/27/16 07:52 Calcium 8.2 mg/dL (8.6-10.8) L 04/27/16 07:52 MRSA Surveillance Scrn Positive (Negative) A 04/26/16 12:00 - VTE Documentation of Mechanical Device: Venous foot pump, device Consult Discharge Plan - Plan Additional Instructions: Discharge Instructions: Total Knee Replacement Please call [facility] ([phone]), your Primary Care Physician, or report to the Emergency Room if you have any of the following symptoms: Nausea, vomiting, fever greater that 101.5, swelling, chest pain, shortness of breath, increased pain/redness/drainage/odor for your incision site, numbness/ tingling, or any other concerning symptoms. ACTIVITY:Weight-bearing as tolerated. You may progress off support (cruthches or walker) as tolerated. MEDICATIONS: Upon discharge resume your home medications. Take all the medications as prescribed. Take a stool softener if taking narcotic pain medications. Stool softeners are only effective if you drink enough fluids. Drink 6-8 glass of water or fluids a day, unless this is not allowed for another health problem. Despite using stool softeners, if you haven't had a bowel movement in 3 days, please switch to a gentle laxative. Gentle laxatives are sold over the counter. You should have a bowel movement within 24 hours, if not call the office. You will be discharged from the hospital with a prescription for pain medication. You are encouraged to decrease the use of narcotic pain medication as tolerated. Should you require a refill, please call the office. [facility] prescribes narcotic pain medication for only 4-6 weeks after surgery. If you require pain medication beyond this time period, you may be referred to your Primary Care Physician or to the Pain Clinic for further evaluation. Plan ahead for refills on pain medication as many narcotics either need to be picked up at the office or mailed. It is best to call 48-72 hours in advance of needing a prescription refill so you don't run out of medication. To help control the post-operative pain, you may take NSAIDs (Aleve,Advil, Motrin, ibuprofen, naprosyn) or Tylenol as prescribed on the bottle in addition to the pain medication. ANTICOAGULATION (blood thinners): Continue your Aspirin, Lovenox or Coumadin as prescribed to help prevent a blood clot in the leg or in the lungs. As long as your incision remains dry and you tolerate the NSAIDs (Aleve, Advil, Motrin, ibuprofen, naprosyn), it is OK to use the NSAIDS while you are taking your anticoagulation medication. Should your incision start to drain, stop the NSAID and contact our office. Common symptoms of blood clot in the legs include: localized pain, swelling, calf tenderness, redness or discoloration of the skin. Blood clot in the lung symptoms include: shortness of breath, rapid pulse, sweating, and chest pain that worsens with deep breathing, coughing up blood, lightheadedness, feelings of anxiety. If you experience any of these symptoms notify your physician immediately, go to the emergency room, or if having trouble breathing, call 911. WOUND CARE: Leave the dressing on for 7 days. You may change the dressing if it becomes saturated greater than 50%. You can shower but not a tub bath or submerge your incision in water. Wash your hands with antibacterial soap, rinse and dry prior to any wound care. If you have frank the visiting nurse or rehab facility can remove the stapes 10-14 days after surgery and place steri- strips across the wound. Leave the steri-strips in place until they fall off on their won. You may let water from the shower run on top of the steri-stirips. If you do not have a visiting nurse or rehab facility, you will need to return to the office at 10-14 days for the frank to be removed. FOLLOW-UP: Please follow up with your surgeon in the orthopedic clinic in 4 weeks from the day of surgery. If you have frank that need to be removed, you will need to come back to the office in 10-14 days from the day of surgery. Referrals: Jefferson Green MD [Partnered Physician] - 05/23/16 7:50 am Marielos Romeo PAC [Physician Artistic Director] - 05/03/16 8:45 am Mylene Norman CNP [Primary Care Provider] -
[2016-04-28 06:42] VITALS: BP 116/63
[2016-04-28] MEDS: Tiotropium 18 MCG inhalation IH SCH (08:12)
[2016-04-28] MEDS: BuPROPion XL (24 HR) 150 MG TABLET PO SCH ×2 (08:27→08:28)
[2016-04-28] MEDS: Furosemide 40 MG TABLET PO SCH (08:28)
[2016-04-28] MEDS: Famotidine 20 MG TABLET PO SCH (08:32)
== END 2016-04-28 09:45 | disposition home or self-care (01) | DRG 302 ==
LOC: SAMDAY 09:57 → 3NENU 15:46
PROVIDERS: ADMIT Orthopaedic Surgery; ATTEND Orthopaedic Surgery

== ENCOUNTER 2021-11-07 16:26 | Inpatient (IN) ==
[2021-11-07] MEDS ORDERED: Melatonin 3 MG TABLET PO PRN (22:18)
[2021-11-07] MEDS ORDERED: Ondansetron ODT 4 MG TAB.RAPDIS SL PRN (22:18)
[2021-11-07] MEDS ORDERED: Naloxone 0.4 MG/ML INJ IVP PRN (22:18)
[2021-11-08] MEDS: Gabapentin 400 MG CAPSULE PO SCH ×5 (00:48→20:00)
[2021-11-08] MEDS: tiZANidine 4 MG TABLET PO SCH ×2 (00:48→20:00)
[2021-11-08] MEDS: QUEtiapine Fumarate 300 MG TABLET PO SCH ×2 (00:48→20:00)
[2021-11-08] MEDS: Ringers Solution, Lactated 1,000 ML IVC SCH ×2 (01:35→20:02)
[2021-11-08] MEDS: Piperacillin/Tazobactam 3.375 GM in 0.9 % Sodium Chloride Mini Bag 100 ML IVPB SCH ×3 (01:35→15:43)
[2021-11-08 06:13] LABS: Hematocrit 28.1 % (35.3-44.9); Hemoglobin 9.5 g/dL (11.5-15.4); Mean Corpuscular HGB Conc 33.8 g/dL (31.6-35.5); Mean Corpuscular Hemoglobin 29.5 pg (28.0-33.3); Mean Corpuscular Volume 87.3 fL (83.0-100.0); Mean Platelet Volume 8.6 fL (9.4-12.4); Platelet Count 300 K/mcL (140-400); Red Blood Count 3.22 M/mcL (3.82-4.97); Red Cell Distribution Width 14.7 % (11.5-14.5); White Blood Count 9.1 K/mcL (4.3-11.1)
[2021-11-08 07:07] LABS: Alanine Aminotransferase 6 Units/L (7-52); Albumin 2.9 g/dL (3.5-5.7); Albumin/Globulin Ratio 1.1 (1.1-2.2); Alkaline Phosphatase 68 Units/L (34-104); Aspartate Amino Transferase 9 Units/L (13-39); BUN/Creatinine Ratio 9 (6-26); Bilirubin,Total 0.4 mg/dL (0.3-1.0); Blood Urea Nitrogen 6 mg/dL (6-20); Carbon Dioxide 22 mEq/L (23-29); Chloride 107 mEq/L (98-107); Globulin 2.7 g/dL (2.4-3.5); Glucose 70 mg/dL (70-105); Magnesium 1.7 mg/dL (1.6-2.6); Osmolality,Calculated 282 (280-300); Phosphorous 2.8 mg/dL (2.7-4.5); Potassium 3.5 mEq/L (3.5-5.1); Sodium 138 mEq/L (136-145); Total Protein 5.6 g/dL (6.4-8.9); eGFR For African Americans > 60 (> 60); eGFR For Non-African Americans > 60 (> 60)
[2021-11-08 07:08] LABS: Bilirubin,Direct 0.1 mg/dL (0.0-0.2); Bilirubin,Indirect 0.3 mg/dL (0.0-1.0); Folate > 22.3 ng/mL (3.0-16.0); Vitamin B12 453 pg/mL (250-1100)
[2021-11-08 08:52] LABS: % Iron Saturation 4 % (15-50); Iron 11 mcg/dL (50-170); Transferrin 185 mg/dL (203-362)
[2021-11-08] MEDS ORDERED: Gabapentin 400 MG CAPSULE PO SCH (09:00)
[2021-11-08 09:24] LABS: Ferritin 35 ng/mL (10-120)
[2021-11-08] MEDS: BuPROPion XL (24 HR) 150 MG TABLET PO SCH (09:27)
[2021-11-08] MEDS ORDERED: D5% in Water 1,000 ML IVC PRN (12:30)
[2021-11-08] MEDS ORDERED: Dextrose Gel 15 GM/37.5 ML TUBE PO PRN ×2 (12:30)
[2021-11-08] MEDS ORDERED: *HR* Dextrose 50 % in Water (Syg) 50 ML SYRINGE IVP PRN (12:30)
[2021-11-08] MEDS ORDERED: Ipratropium/Albuterol Neb 3 ML IH PRN (20:12)
[2021-11-08] MEDS ORDERED: QUEtiapine Fumarate 300 MG TABLET PO SCH (21:00)
[2021-11-08] MEDS ORDERED: tiZANidine 4 MG TABLET PO SCH (21:00)
[2021-11-09] MEDS: Piperacillin/Tazobactam 3.375 GM in 0.9 % Sodium Chloride Mini Bag 100 ML IVPB SCH ×3 (00:46→16:10)
[2021-11-09 04:03] LABS: Basophils # 0.1 K/mcL (0.0-0.2); Basophils % 0.9 %; Eosinophils # 0.3 K/mcL (0.0-0.6); Eosinophils % 3.8 %; Hematocrit 29.9 % (35.3-44.9); Hemoglobin 9.7 g/dL (11.5-15.4); Immature Granulocytes % 0.3 % (0-4); Lymphocytes # 1.9 K/mcL (0.6-4.6); Lymphocytes % 29.2 %; Mean Corpuscular HGB Conc 32.4 g/dL (31.6-35.5); Mean Corpuscular Hemoglobin 28.3 pg (28.0-33.3); Mean Corpuscular Volume 87.2 fL (83.0-100.0); Mean Platelet Volume 8.6 fL (9.4-12.4); Monocytes # 0.5 K/mcL (0.0-1.3); Monocytes % 8.2 %; Neutrophils # 3.8 K/mcL (1.6-8.9); Platelet Count 344 K/mcL (140-400); Red Blood Count 3.43 M/mcL (3.82-4.97); Red Cell Distribution Width 14.6 % (11.5-14.5); Segmented Neutrophils % 57.6 %; White Blood Count 6.6 K/mcL (4.3-11.1)
[2021-11-09 04:20] LABS: BUN/Creatinine Ratio 6 (6-26); Blood Urea Nitrogen 5 mg/dL (6-20); Calcium 8.1 mg/dL (8.6-10.3); Carbon Dioxide 27 mEq/L (23-29); Chloride 108 mEq/L (98-107); Glucose 79 mg/dL (70-105); Magnesium 1.8 mg/dL (1.6-2.6); Osmolality,Calculated 286 (280-300); Phosphorous 3.2 mg/dL (2.7-4.5); Potassium 3.5 mEq/L (3.5-5.1); Sodium 140 mEq/L (136-145); eGFR For African Americans > 60 (> 60); eGFR For Non-African Americans > 60 (> 60)
[2021-11-09] MEDS ORDERED: hydrOXYzine pamoate 25 MG CAPSULE PO PRN (07:40)
[2021-11-09] MEDS: BuPROPion XL (24 HR) 150 MG TABLET PO SCH (08:36)
[2021-11-09] MEDS: Loratadine 10 MG TABLET PO SCH (08:37)
[2021-11-09] MEDS: Gabapentin 400 MG CAPSULE PO SCH ×4 (08:37→20:38)
[2021-11-09] MEDS ORDERED: Gabapentin 400 MG CAPSULE PO SCH (09:00)
[2021-11-09] MEDS: Ringers Solution, Lactated 1,000 ML IVC SCH (18:37)
[2021-11-09] MEDS: tiZANidine 4 MG TABLET PO SCH (20:38)
[2021-11-09] MEDS: QUEtiapine Fumarate 300 MG TABLET PO SCH (20:38)
[2021-11-10] MEDS: Piperacillin/Tazobactam 3.375 GM in 0.9 % Sodium Chloride Mini Bag 100 ML IVPB SCH (00:54)
[2021-11-10] MEDS: Gabapentin 400 MG CAPSULE PO SCH (09:05)
[2021-11-10] MEDS: BuPROPion XL (24 HR) 150 MG TABLET PO SCH (09:06)
[2021-11-10] MEDS: Loratadine 10 MG TABLET PO SCH (09:06)
[2021-11-10] MEDS ORDERED: Pfizer Covid-19 Vaccine 30MCG/0.3ML IM ONE (10:08)
[2021-11-10 10:36] VITALS: BP 116/77; PULSE 76; TEMP 97.7; O2SAT 98
== END 2021-11-10 11:02 | disposition home or self-care (01) | DRG 383 ==
LOC: 3ANU → SUATTDRO 22:18
PROVIDERS: ADMIT Internal Medicine; ATTEND Internal Medicine
PROC: IRDRAIN (2021-11-08 12:00)